=== PATIENT | male | born 1955 | race Caucasian/White ===

== ENCOUNTER 2024-12-23 07:55 | Day surgery (SDC) | payer MEDICARE, MEDICAID ==
[~2024-12-23 07:55] MED LIST: Sodium Chloride 0.9% 10 ML Syringe FLUSH PRN
[2024-12-23] MEDS: Lactated Ringers 1,000 ML IV SCH (08:15)
[2024-12-23] MEDS ORDERED: Propofol 200 MG/20 ML SDV ONE (08:51)
[2024-12-23] MEDS ORDERED: Midazolam 1 MG/ML 2 ML SDV ONE (08:51)
== END 2024-12-23 11:20 ==
LOC: KA.SDS 07:55
PROVIDERS: ATTEND Family Medicine
DX: Z12.11 Encounter for screening for malignant neoplasm of colon (principal); D12.0 Benign neoplasm of cecum; D12.3 Benign neoplasm of transverse colon; K57.30 Diverticulosis of large intestine without perforation or abscess without bleeding; K64.8 Other hemorrhoids; I10 Essential (primary) hypertension; E78.2 Mixed hyperlipidemia; I12.9 Hypertensive chronic kidney disease with stage 1 through stage 4 chronic kidney disease, or unspecified chronic kidney disease; N18.30 Chronic kidney disease, stage 3 unspecified; Z86.0101 Personal history of adenomatous and serrated colon polyps; Z87.891 Personal history of nicotine dependence; Z79.899 Other long term (current) drug therapy
CPT/HCPCS: 00811; 88305; J2250; J2704; J7120